=== PATIENT | male | born 1990 | race Hispanic/Latino ===

== ENCOUNTER 2021-03-25 16:00 | Emergency (ER) | payer OTHER ==
[~2021-03-25] VITALS: Ht 180.3 cm; Wt 88.6 kg
[2021-03-25] MEDS ORDERED: LIDOCAINE W/EPINEPHRINE 1% 20ML VIAL SC ONE (21:30)
[2021-03-25] MEDS ORDERED: NEOSPORIN OINT 0.9 GM PKT TOP ONE (21:30)
--- NOTE | 2021-03-25 22:29 | REPVR ---
PROCEDURE INFORMATION: Exam: XR Right Knee Exam date and time: 03/25/2021 9:38 PM Age: 30 years old Clinical indication: Injury or trauma; Fall; Bleeding/hemorrhage; Knee; Right; Additional info: Fall onto rock, laceration TECHNIQUE: Imaging protocol: XR Right knee. Views: 4 or more views. COMPARISON: No relevant prior studies available. FINDINGS: Bones/joints: No acute fracture or dislocation. Soft tissues: Prepatellar soft tissue laceration and swelling. IMPRESSION: 1. No acute osseous abnormality. 2. Prepatellar soft tissue laceration and swelling. Electronically signed by: Javier Hitchcock On 03/25/2021 22:29:49 PM
[2021-03-25 22:46] VITALS: BP 114/63
== END 2021-03-25 22:48 | disposition home or self-care (01) ==
LOC: M ED 16:00
DX: S81.011A Laceration without foreign body, right knee, initial encounter (principal); W22.8XXA Striking against or struck by other objects, initial encounter; Y92.138 Other place on military base as the place of occurrence of the external cause; Y99.1 Military activity; Z91.018 Allergy to other foods; Z91.030 Bee allergy status; F17.210 Nicotine dependence, cigarettes, uncomplicated

== ENCOUNTER → 2021-08-12 | Outpatient (REF) | LOC: M LABSMTC 11:41 | PROVIDERS: ATTEND Pediatrics | DX: Z11.52 Encounter for screening for COVID-19 (principal); Z20.822 Contact with and (suspected) exposure to COVID-19 ==

== ENCOUNTER 2022-04-07 10:13 | Emergency (ER) | payer OTHER ==
[~2022-04-07] VITALS: Ht 177.8 cm; Wt 86.4 kg
[2022-04-07 14:36] LABS: BASO % 0.4 % (0.0-1.0); EOS # 0.2 10^3/uL (0.0-0.5); EOS % 2.3 % (0.0-3.0); HEMATOCRIT 46.2 % (42.0-52.0); HEMOGLOBIN 15.7 g/dl (13.5-17.5); LYMPH # 3.2 10^3/uL (1.5-5.0); LYMPH % 42.4 % (24.0-44.0); MEAN CORPUSCULAR HEMOGLOBIN 29.8 pg (27.0-33.0); MEAN CORPUSCULAR VOLUME 87.8 fl (80.0-96.0); MONO # 0.5 10^3/uL (0.0-0.8); MONO % 7.1 % (2.0-8.0); NEUTROPHILS # 3.6 10^3/uL (1.5-8.5); NEUTROPHILS % 47.5 % (36.0-66.0); PLATELET COUNT, AUTOMATED 324 10^3/uL (150-450); RED BLOOD COUNT 5.26 10^6/uL (4.30-6.10); WHITE BLOOD COUNT 7.5 10^3/uL (4.0-10.0)
[2022-04-07 14:46] LABS: BLOOD UREA NITROGEN 15 MG/DL (7-18); CALCIUM LEVEL 9.8 MG/DL (8.5-10.1); CARBON DIOXIDE LEVEL 30 MEQ/L (21-32); CHLORIDE LEVEL 102 MEQ/L (98-107); CREATININE FOR GFR 1.08 MG/DL (0.70-1.30); GLOMERULAR FILTRATION RATE > 60.0 (>60); GLUCOSE, FASTING 84 MG/DL (70-100); POTASSIUM SERUM 4.3 MEQ/L (3.5-5.1); SODIUM LEVEL 135 MEQ/L (136-145)
[2022-04-07 14:53] LABS: INR 0.98; PROTHROMBIN TIME 13.4 SECONDS (12.7-14.5)
[2022-04-07 15:31] LABS: D-DIMER QUANT < 270.0 ng/ml (<500)
[2022-04-07 15:35] LABS: CK-MB VALUE MASS < 1.0 NG/ML (<3.6); CPK CREATINE PHOSPHOKINASE 113 U/L (39-308); MB/CK RELATIVE INDEX 0.88 (< OR =4)
[2022-04-07] MEDS ORDERED: KETOROLAC 30 MG/ML 1ML VIAL IV ONE (15:45)
[2022-04-07 15:54] VITALS: BP 122/79
== END 2022-04-07 16:01 | disposition home or self-care (01) ==
LOC: M ED 10:13
DX: R07.89 Other chest pain (principal); R06.02 Shortness of breath; Z91.030 Bee allergy status; Z87.891 Personal history of nicotine dependence
CPT/HCPCS: 71046; 80048; 82550; 82553; 84484; 85025; 85379; 85610; 85730; 93005; 96374; 99284; J1885

== ENCOUNTER → 2022-12-24 | Outpatient (CLI) | payer OTHER | LOC: M PLAIMG 14:38 | PROVIDERS: ATTEND Physician Assistant | DX: M79.641 Pain in right hand (principal) ==

== ENCOUNTER → 2024-04-28 | Outpatient (CLI) | payer OTHER | LOC: M SLEEP 20:00 | PROVIDERS: ATTEND Family Medicine | DX: G47.33 Obstructive sleep apnea (adult) (pediatric) (principal) ==

== ENCOUNTER 2024-08-12 07:15 | Emergency (ER) | payer OTHER ==
[~2024-08-12] VITALS: Ht 180.3 cm; Wt 99.2 kg
[2024-08-12] MEDS ORDERED: ACET1TAB55 PO (07:26)
[2024-08-12] MEDS ORDERED: METH-1165 PO (08:20)
[2024-08-12] MEDS ORDERED: KETO10TAB PO (08:20)
[2024-08-12 08:28] VITALS: BP 111/69; TEMP 97.2; O2SAT 98
== END 2024-08-12 08:29 | disposition home or self-care (01) ==
LOC: M ED 07:15
DX: M54.41 Lumbago with sciatica, right side (principal); M51.360 Other intervertebral disc degeneration, lumbar region with discogenic back pain only; S39.012A Strain of muscle, fascia and tendon of lower back, initial encounter; Y92.9 Unspecified place or not applicable; Y93.9 Activity, unspecified; Y99.9 Unspecified external cause status; Z91.030 Bee allergy status; Z91.013 Allergy to seafood; Z79.2 Long term (current) use of antibiotics; Z79.1 Long term (current) use of non-steroidal anti-inflammatories (NSAID)

== ENCOUNTER 2025-07-22 11:18 | Emergency (ER) | payer OTHER ==
[~2025-07-22] VITALS: Ht 180.3 cm; Wt 98.6 kg
[~2025-07-22 11:18] MED LIST: ACET1TAB55 PO; KETO10TAB PO; METH-1165 PO
[2025-07-22 12:29] LABS: BASO # 0.0 10^3/uL (0.0-0.2); BASO % 0.6 % (0.0-1.0); EOS # 0.2 10^3/uL (0.0-0.5); EOS % 2.2 % (0.0-3.0); LYMPH # 3.0 10^3/uL (1.5-5.0); LYMPH % 43.4 % (24.0-44.0); MONO # 0.5 10^3/uL (0.0-0.8); MONO % 6.9 % (2.0-8.0); NEUTROPHILS # 3.2 10^3/uL (1.5-8.5); NEUTROPHILS % 46.8 % (36.0-66.0); PLATELET COUNT, AUTOMATED 363 10^3/uL (150-450)
[2025-07-22 12:39] LABS: ALT/SGPT 72 U/L (7.0-40); AST/SGOT 35 U/L (<34); CALCIUM LEVEL 9.9 MG/DL (8.5-10.1); CARBON DIOXIDE LEVEL 26 MMOL/L (20-31); CHLORIDE LEVEL 103 MMOL/L (98-107); CK-MB VALUE MASS 1.0 NG/ML (<3.6); CREATININE FOR GFR 0.99 MG/DL (0.70-1.30); GLOMERULAR FILTRATION RATE > 90.0 (>60); POTASSIUM SERUM 4.1 MMOL/L (3.5-5.1); SODIUM LEVEL 140 MMOL/L (136-145)
[2025-07-22 12:42] LABS: THYROXINE (T4) 4.7 UG/DL (4.5-10.9)
[2025-07-22 12:43] LABS: CPK CREATINE PHOSPHOKINASE 133 U/L (46-171); MB/CK RELATIVE INDEX 0.75 (< OR =4)
[2025-07-22 12:51] LABS: INR 0.93
[2025-07-22] MEDS ORDERED: ISOVUE-370 76% 100 ML VIAL As Ordered ONE (14:53)
[2025-07-22 16:30] VITALS: BP 120/74; TEMP 97.6; O2SAT 98
== END 2025-07-22 16:31 | disposition home or self-care (01) ==
LOC: M ED 11:51
DX: R06.02 Shortness of breath (principal); R07.9 Chest pain, unspecified; K76.0 Fatty (change of) liver, not elsewhere classified; F17.290 Nicotine dependence, other tobacco product, uncomplicated; Z91.030 Bee allergy status; Z91.013 Allergy to seafood
CPT/HCPCS: 36415; 71045; 71275; 80048; 80076; 82550; 82553; 84436; 84443; 84484; 85025; 85610; 93041; 94760; 99285; Q9967